=== PATIENT | female | born 1990 | race African-American/Black ===

== ENCOUNTER 2017-11-14 05:38 | Emergency (ER) | payer OTHER ==
[~2017-11-14] VITALS: Ht 167.6 cm; Wt 112.5 kg
[2017-11-14 05:43] VITALS: Ht 167.6 cm; Wt 112.5 kg
[2017-11-14 07:05] LABS: PLATELET COUNT 188 x10^3mcL (130-400); RED CELL DISTRIBUTION WIDTH 14.2 % (11.5-14.5)
[2017-11-14 07:06] LABS: BASOPHIL % 4.9 % (0-2)
[2017-11-14 07:06] LABS: UA SPECIFIC GRAVITY 1.025 (1.005-1.035); microscopic required? YES; urine erythrocyte TRACE (NEGATIVE)
[2017-11-14 07:28] LABS: CALCIUM 9.2 mg/dL (8.5-10.1); CHLORIDE SERUM 100 mmol/L (98-107); GFR1 > 60 mL/min; GLUCOSE SERUM 122 mg/dL (74-106); SODIUM SERUM 137 mmol/L (136-145)
[2017-11-14 07:30] LABS: POTASSIUM SERUM 2.8 mmol/L (3.5-5.1)
[2017-11-14 10:37] VITALS: BP 108/64
== END 2017-11-14 11:39 | disposition home or self-care (01) ==
LOC: ED 05:38
PROVIDERS: Emergency Medicine Emergency Medical Services
DX: N12 Tubulo-interstitial nephritis, not specified as acute or chronic (principal); E11.9 Type 2 diabetes mellitus without complications; Z88.0 Allergy status to penicillin
CPT/HCPCS: J3535; J7030; J7613; Q0162

== ENCOUNTER 2017-12-02 02:28 | Emergency (ER) | payer OTHER ==
[~2017-12-02] VITALS: Ht 167.6 cm; Wt 113.9 kg
[2017-12-02 02:34] VITALS: Ht 167.6 cm; Wt 113.9 kg
[2017-12-02 04:08] LABS: BASOPHIL % 1.1 % (0-2); PLATELET COUNT 375 x10^3mcL (130-400)
[2017-12-02 04:09] LABS: RED CELL DISTRIBUTION WIDTH 14.8 % (11.5-14.5)
[2017-12-02 04:24] LABS: CALCIUM 8.7 mg/dL (8.5-10.1); CARBON DIOXIDE 32.1 mmol/L (21-32); CHLORIDE SERUM 94 mmol/L (98-107); GFR1 > 60 mL/min; GLUCOSE SERUM 204 mg/dL (74-106); POTASSIUM SERUM 4.2 mmol/L (3.5-5.1); SODIUM SERUM 133 mmol/L (136-145)
[2017-12-02 04:29] LABS: ALKALINE PHOSPHATASE 70 U/L (46-116); ALT/SGPT 29 U/L (14-59); AST/SGOT 19 U/L (15-37); BILIRUBIN TOTAL 0.46 mg/dL (0.20-1.00); LIPASE 129 IU/L (73-393); TOTAL PROTEIN, SERUM 7.4 g/dL (6.4-8.2)
[2017-12-02 04:34] LABS: UA SPECIFIC GRAVITY 1.025 (1.005-1.035); microscopic required? YES; urine erythrocyte NEGATIVE (NEGATIVE)
[2017-12-02 04:35] LABS: ALBUMIN 3.3 g/dL (3.4-5.0)
[2017-12-02 08:12] VITALS: BP 140/92
[2017-12-02] MEDS ORDERED: KEPPRA500 MG PO (10:17)
== END 2017-12-02 08:12 | disposition home or self-care (01) ==
LOC: ED 02:28
PROVIDERS: Emergency Medicine
DX: R10.11 Right upper quadrant pain (principal); J40 Bronchitis, not specified as acute or chronic; F41.9 Anxiety disorder, unspecified; E11.9 Type 2 diabetes mellitus without complications
CPT/HCPCS: J1885; J2060; J2270; J7030; J7512; Q0092

== ENCOUNTER 2017-12-02 08:50 | Inpatient (IN) | payer OTHER ==
[~2017-12-02] VITALS: Ht 167.6 cm; Wt 113.9 kg
[2017-12-02] MEDS ORDERED: KEPPRA500 MG PO (10:17)
[2017-12-02 11:07] VITALS: BP 124/94
[2017-12-02 11:21] LABS: T3 TOTAL 0.97 ng/mL
[2017-12-02 11:26] LABS: CHOLESTEROL/HDL RATIO 5.2; MAGNESIUM 1.8 mg/dL (1.8-2.4); PHOSPHOROUS 2.7 mg/dL (2.5-4.9)
[2017-12-02 11:31] LABS: FREE T4 0.8 ng/dL (0.76-1.46); FREE THYROXINE INDEX 1.9 ug/dL (1.4-4.5); T4(THYROXINE) 5.7 ug/dL (4.7-13.3)
[2017-12-02 11:33] VITALS: BP 124/94
[2017-12-02 12:40] VITALS: BP 124/94
[2017-12-02 15:24] LABS: microscopic required? YES; urine erythrocyte NEGATIVE (NEGATIVE)
[2017-12-02 15:32] LABS: AMPHETAMINE QUAL UR NONE DETECTED (See below)
[2017-12-02 18:22] VITALS: BP 116/54; BP 145/96
[2017-12-02 20:45] VITALS: BP 141/96
[2017-12-03 05:28] VITALS: BP 116/66
[2017-12-03 10:21] VITALS: BP 127/74
[2017-12-03 10:25] LABS: PLATELET COUNT 372 x10^3mcL (130-400)
[2017-12-03 10:32] LABS: RED CELL DISTRIBUTION WIDTH 14.9 % (11.5-14.5)
[2017-12-03 10:37] LABS: CALCIUM 8.2 mg/dL (8.5-10.1); CARBON DIOXIDE 29.9 mmol/L (21-32); CHLORIDE SERUM 97 mmol/L (98-107); CREATININE SERUM 0.9 mg/dL (0.6-1.0); GFR1 > 60 mL/min; GLUCOSE SERUM 183 mg/dL (74-106); POTASSIUM SERUM 3.9 mmol/L (3.5-5.1); SODIUM SERUM 135 mmol/L (136-145)
[2017-12-03 10:42] LABS: ATYPICAL LYMPH 1 %; BAND NEUTROPHIL 1 % (0-10); BASOPHIL 0 % (0-2); MONOCYTE 2 % (0-7); SEGMENTED NEUTROPHILS 89 % (37-75)
[2017-12-03 10:44] LABS: PLATELET MORPHOLOGY PLATELETS DECREASED; rbc morphology (normal/abnorm) ABNORMAL (NORMAL)
[2017-12-03 17:49] VITALS: BP 114/79
[2017-12-03 21:07] VITALS: BP 133/85
[2017-12-04 05:50] VITALS: BP 130/84
[2017-12-04 06:55] LABS: PLATELET COUNT 316 x10^3mcL (130-400)
[2017-12-04 07:11] LABS: CALCIUM 7.7 mg/dL (8.5-10.1); CARBON DIOXIDE 28.8 mmol/L (21-32); CHLORIDE SERUM 100 mmol/L (98-107); CREATININE SERUM 0.8 mg/dL (0.6-1.0); GFR1 > 60 mL/min; GLUCOSE SERUM 160 mg/dL (74-106); MAGNESIUM 1.9 mg/dL (1.8-2.4); PHOSPHOROUS 1.9 mg/dL (2.5-4.9); POTASSIUM SERUM 3.6 mmol/L (3.5-5.1); SODIUM SERUM 136 mmol/L (136-145)
[2017-12-04 09:00] VITALS: BP 113/89
[2017-12-04 10:12] LABS: BAND NEUTROPHIL 3 % (0-10); BASOPHIL 0 % (0-2); MONOCYTE 8 % (0-7); SEGMENTED NEUTROPHILS 77 % (37-75)
[2017-12-04 10:13] LABS: PLATELET MORPHOLOGY PLATELETS NORMAL; rbc morphology (normal/abnorm) ABNORMAL (NORMAL)
[2017-12-04 10:37] VITALS: BP 130/84
[2017-12-04 17:40] VITALS: BP 115/77
[2017-12-04 21:48] VITALS: BP 127/89
[2017-12-05 06:05] VITALS: BP 111/70
[2017-12-05 06:15] LABS: BASOPHIL % 0.1 % (0-2); PLATELET COUNT 306 x10^3mcL (130-400)
[2017-12-05 06:39] LABS: CALCIUM 7.6 mg/dL (8.5-10.1); CARBON DIOXIDE 28.3 mmol/L (21-32); CHLORIDE SERUM 99 mmol/L (98-107); CREATININE SERUM 0.7 mg/dL (0.6-1.0); GFR1 > 60 mL/min; GLUCOSE SERUM 156 mg/dL (74-106); SODIUM SERUM 135 mmol/L (136-145)
[2017-12-05 06:55] LABS: POTASSIUM SERUM 2.9 mmol/L (3.5-5.1)
[2017-12-05 09:08] VITALS: BP 123/80
[2017-12-05] MEDS ORDERED: LIPI10 PO (17:30)
[2017-12-05] MEDS ORDERED: APAP/HYDROCODON1 T13 PO (17:31)
[2017-12-05] MEDS ORDERED: QUETIAPINE FUMA25 M1 PO (17:31)
[2017-12-05] MEDS ORDERED: TYL325 PO (17:31)
[2017-12-05] MEDS ORDERED: BG FS (17:32)
[2017-12-05] MEDS ORDERED: MUCINEX600 MG PO (17:32)
[2017-12-05] MEDS ORDERED: LEVEMIR100 U/M1 SC (17:32)
[2017-12-05] MEDS ORDERED: ZOFI IV (17:32)
[2017-12-05] MEDS ORDERED: COL100 PO (17:32)
[2017-12-05] MEDS ORDERED: APLICARE ANTIS118 M3 TOP (17:33)
[2017-12-05] MEDS ORDERED: HUMULIN R100 U/1 M1 SC (17:33)
[2017-12-05] MEDS ORDERED: BACO TOP (17:33)
[2017-12-05] MEDS ORDERED: KEP500 PO (17:37)
[2017-12-05 17:55] VITALS: BP 122/84
[2017-12-05] MEDS ORDERED: LANTUS SOLOS100 U/M1 SC (17:57)
[2017-12-05 19:14] VITALS: BP 122/84
[2017-12-07 11:38] VITALS: Ht 167.6 cm; Wt 113.9 kg
== END 2017-12-05 20:02 | disposition short-term general hospital (02) | DRG 445 ==
LOC: ED 08:50 → MU 09:24 → DU 09:24 → MU 10:35 → DU 10:35 → MU 10:35
PROVIDERS: Family Medicine
DX: K81.0 Acute cholecystitis (principal); N39.0 Urinary tract infection, site not specified; Z68.41 Body mass index [BMI] 40.0-44.9, adult; E11.65 Type 2 diabetes mellitus with hyperglycemia; F20.9 Schizophrenia, unspecified; F41.9 Anxiety disorder, unspecified; E78.00 Pure hypercholesterolemia, unspecified; Z79.4 Long term (current) use of insulin; G40.909 Epilepsy, unspecified, not intractable, without status epilepticus; Z22.322 Carrier or suspected carrier of Methicillin resistant Staphylococcus aureus; Z88.0 Allergy status to penicillin
CPT/HCPCS: 83880; 84439; 94150; J0696; J1170; J1956; J2270; J2405; J3480; J3490; J7030; J7620; Q0092